=== PATIENT | male | born 1945 | race Caucasian/White ===

== ENCOUNTER 2022-04-14 12:06 | Day surgery (SDC) | payer MEDICARE, BC ==
[~2022-04-14] VITALS: Ht 182.9 cm; Wt 151.8 kg
[2022-04-14] VITALS (11 sets, daily range): BP systolic 96–149; BP diastolic 57–93
[2022-04-14] MEDS ORDERED: normal saline 1000ml 1,000 ML IV SCH (12:30)
[2022-04-14] MEDS ORDERED: MIDAZolam 1mg/ml 10ml vial IV ONE (12:30)
[2022-04-14] MEDS ORDERED: fentaNYL/PF 50MCG/1 ML 2ML syringe IV ONE (12:30)
[2022-04-14] MEDS ORDERED: MELO-102 PO (12:49)
[2022-04-14] MEDS ORDERED: DILT120C88 PO (12:49)
[2022-04-14] MEDS ORDERED: LEVO75TA7 PO (12:49)
[2022-04-14] MEDS ORDERED: ESCI-8 PO (12:49)
[2022-04-14] MEDS ORDERED: OMEP20CA16 PO (12:49)
[2022-04-14] MEDS ORDERED: ATOR20TA66 PO (12:49)
[2022-04-14] MEDS ORDERED: APIX5TAB3 PO (12:49)
[2022-04-14] MEDS ORDERED: SACU1TAB (12:56)
[2022-04-14] MEDS ORDERED: SOTA80TA73 PO (13:04)
[2022-04-14] MEDS ORDERED: ASPI-611 PO (13:04)
[2022-04-14] MEDS ORDERED: FLUT16SP2 BOTHNARES (13:04)
[2022-04-14] MEDS ORDERED: MULT-1085 PO (13:04)
== END 2022-04-14 15:20 | disposition home or self-care (01) ==
LOC: SSTAY O 12:06
PROVIDERS: ATTEND Student in an Organized Health Care Education/Training Program
DX: I48.91 Unspecified atrial fibrillation (principal); I25.2 Old myocardial infarction; R94.31 Abnormal electrocardiogram [ECG] [EKG]; K21.9 Gastro-esophageal reflux disease without esophagitis; M19.90 Unspecified osteoarthritis, unspecified site; G47.33 Obstructive sleep apnea (adult) (pediatric); Z79.899 Other long term (current) drug therapy; Z98.890 Other specified postprocedural states
CPT/HCPCS: 92960; 93005; J2250; J3010; J7030; A4620

== ENCOUNTER 2022-12-15 12:07 | Day surgery (SDC) | payer MEDICARE, BC ==
[2022-12-15] VITALS (12 sets, daily range): BP systolic 112–137; BP diastolic 62–91
[~2022-12-15] VITALS: Ht 182.9 cm; Wt 141.5 kg
[~2022-12-15 12:07] MED LIST: APIX5TAB3 PO; ASPI-611 PO; ATOR20TA66 PO; DILT120C88 PO; ESCI-8 PO; FLUT16SP2 BOTHNARES; LEVO75TA7 PO; MELO-102 PO; MULT-1085 PO; OMEP20CA16 PO; SACU1TAB; SOTA80TA73 PO
[2022-12-15] MEDS ORDERED: MIDAZolam 1mg/ml 10ml vial IV ONE (12:35)
[2022-12-15] MEDS ORDERED: fentaNYL/PF 50MCG/1 ML 2ML syringe IV ONE (12:35)
[2022-12-15] MEDS ORDERED: normal saline 1000ml 1,000 ML IV SCH (12:35)
[2022-12-15] MEDS ORDERED: METO-384 PO (12:40)
[2022-12-15] MEDS ORDERED: EMPA10TA PO (12:40)
[2022-12-15] MEDS ORDERED: CHOL10006 PO (12:41)
[2022-12-15] MEDS ORDERED: ASPI-1071 PO (12:44)
[2022-12-15] MEDS ORDERED: AMI200T PO (12:44)
== END 2022-12-15 15:30 | disposition home or self-care (01) ==
LOC: SSTAY O 12:07
PROVIDERS: ATTEND Student in an Organized Health Care Education/Training Program
DX: I48.91 Unspecified atrial fibrillation (principal); I11.0 Hypertensive heart disease with heart failure; I50.9 Heart failure, unspecified; G47.33 Obstructive sleep apnea (adult) (pediatric); K21.9 Gastro-esophageal reflux disease without esophagitis; M19.90 Unspecified osteoarthritis, unspecified site; Z79.01 Long term (current) use of anticoagulants; Z79.899 Other long term (current) drug therapy; Z79.82 Long term (current) use of aspirin
CPT/HCPCS: 92960; 93005; J2250; J3010; J7030; A4620